=== PATIENT | female | born 1980 | race African-American/Black ===

== ENCOUNTER 2018-01-04 00:32 | Emergency (ER) | payer OTHER ==
[~2018-01-04] VITALS: Ht 154.9 cm; Wt 78.9 kg
[~2018-01-04 00:32] MED LIST: ACETAMINOPHEN325 M1 PO; ASPIRIN325 PO; IBUPROFEN 600600 M1 PO; NOHOMEMEDICATIONS; PRAVACHOL20 MG PO; PROSTATE 2.4 C1 EACH PO; TESSALON PERLE100 MG PO; TOPAMAX 25 MG T25 M1 PO; ZANTAC 150MG T150 MG PO; ZOFRAN ODT4 MG PO; ZOFRAN ODT8 MG PO; ZPAK PO
[2018-01-04 01:01] LABS: URINE BILIRUBIN NEGATIVE (Negative); URINE BLOOD 2+ (Negative); URINE CLARITY CLEAR; URINE COLOR YELLOW; URINE GLUCOSE-RANDOM* NEGATIVE (Negative); URINE KETONES NEGATIVE (Negative); URINE LEUKOCYTES-REFLEX NEGATIVE (Negative); URINE NITRITE-REFLEX NEGATIVE (Negative); URINE PROTEIN (DIPSTICK) TRACE (Negative); URINE SPECIFIC GRAVITY >= 1.030 (1.005-1.035)
[2018-01-04 01:11] LABS: BACTERIA-REFLEX 1-9 Few /HPF (None Seen); CASTS None Seen /LPF (None Seen); CRYSTALS None Seen /LPF (None Seen); MUCUS 4-6 Moderate strn/LPF (None Seen); SQUAMOUS 0-3 Few /LPF (0-3); URINE RBC 3-10 Few /HPF (0-2); URINE WBC-REFLEX 0-5 Rare /HPF (0-5)
[2018-01-04 01:25] LABS: ABSOLUTE NEUTROPHILS 3.5 thou/uL (1.4-8.2); BASOPHILS 0.7 % (0.0-2.0); EOSINOPHILS 1.1 % (0.0-3.0); HEMATOCRIT 38.8 % (37.0-47.0); HEMOGLOBIN 12.8 gm/dL (12.0-15.0); LYMPHOCYTES 35.5 % (24.0-44.0); MCH 27.9 pg (26.0-34.0); MCV 84.5 fL (80.0-100.0); MONOCYTES 9.4 % (1.0-8.0); PLATELET COUNT 257 thou/uL (150-400); POLYS 53.3 % (36.0-66.0); RBC 4.59 mil/uL (4.20-5.00); RDW 13.5 % (10.5-14.5); WBC 6.5 thou/uL (4.0-11.0)
[2018-01-04 01:33] LABS: CALCIUM 8.6 mg/dL (8.5-10.1); CREATININE 0.7 mg/dL (0.6-1.0); POTASSIUM 3.5 mmol/L (3.5-5.1)
[2018-01-04 01:39] LABS: ALBUMIN 3.5 g/dL (3.4-5.0); TOTAL BILIRUBIN 0.3 mg/dL (<0.1-1.0); TOTAL PROTEIN 7.5 g/dL (6.4-8.2)
[2018-01-04] MEDS ORDERED: KEFLEX500 M1 PO (01:49)
== END 2018-01-04 02:15 | disposition home or self-care (01) ==
LOC: ER 00:32
PROVIDERS: Emergency Medicine
DX: N39.0 Urinary tract infection, site not specified (principal); F17.210 Nicotine dependence, cigarettes, uncomplicated; Z95.5 Presence of coronary angioplasty implant and graft; Z86.73 Personal history of transient ischemic attack (TIA), and cerebral infarction without residual deficits

== ENCOUNTER 2020-02-23 03:50 | Inpatient (IN) | payer OTHER ==
[~2020-02-23] VITALS: Ht 160 cm; Wt 64.4 kg
[~2020-02-23 03:50] MED LIST changes: +KEFLEX500 M1 PO
[2020-02-23 03:53] VITALS: BP 142/100
[2020-02-23 05:48] LABS: ABSOLUTE NEUTROPHILS 5.2 thou/uL (1.4-8.2); BASOPHILS 0.5 % (0.0-2.0); EOSINOPHILS 0.9 % (0.0-3.0); HEMATOCRIT 43.9 % (37.0-47.0); HEMOGLOBIN 14.3 gm/dL (12.0-15.0); LYMPHOCYTES 26.8 % (24.0-44.0); MCH 27.7 pg (26.0-34.0); MCHC 32.7 g/dL (28.0-37.0); MCV 84.8 fL (80.0-100.0); MONOCYTES 6.6 % (1.0-8.0); PLATELET COUNT 225 thou/uL (150-400); POLYS 65.2 % (36.0-66.0); RBC 5.17 mil/uL (4.20-5.00); RDW 13.7 % (10.5-14.5)
[2020-02-23 05:52] LABS: D-DIMER 3.18 ug/mLFEU (0.19-0.50)
[2020-02-23 06:19] LABS: ANION GAP 12 mmol/L (7-16); BUN 9 mg/dL (7-18); CHLORIDE 102 mmol/L (98-107); CO2 25 mmol/L (21-32); CREATININE 0.7 mg/dL (0.6-1.0); GLUCOSE 102 mg/dL (74-106); POTASSIUM 3.6 mmol/L (3.5-5.1); SODIUM 139 mmol/L (136-145)
[2020-02-23 06:29] LABS: TROPONIN-I <0.06 ng/mL (<0.06)
[2020-02-23] MEDS ORDERED: ATORVASTATIN CA80 MG PO (08:19)
[2020-02-23 08:20] LABS: PROTIME 9.6 Seconds (9.3-11.4)
--- NOTE | 2020-02-23 09:24 | EKG ---
[facility] [place] [address] ELECTROCARDIOGRAM REPORT Name: ALIN AMAYA Room #: 170- ADM IN M.R.#: [id number] Admission: 02/23/20 Attend Phys: Ingrid Sunshine MD Discharge: Date of : 84 Report #: [id number] THIS REPORT FOR: cc: [facility] - Clinic physician unknown [facility] - Clinic physician unknown Raymond Kaur MD [facility] THIS REPORT FOR: //name// [facility] ED Test Date: 2020-02-23 Test Time: 05:08:31 Pat Name: ALIN AMAYA Department: Room: [facility] Gender: F 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
[2020-02-23 09:40] VITALS: BP 125/74
[2020-02-23 09:45] VITALS: BP 114/84
[2020-02-23 10:00] VITALS: BP 113/79
[2020-02-23 15:48] VITALS: BP 114/79
--- NOTE | 2020-02-23 16:10 | NUR ---
PT ADMITTED RELATED TO PE. CM REVIEWED CHART AND SPOKE WITH CARE TEAM. CM CALLED AND SPOKE WITH PT THIS AFTERNOON. SHE INDICATED THAT SHE RESIDES IN AN APARTMENT WITH HER DTRS. SHE INDICATED THERE ARE 15 STEP TO ENTER AND NO STEPS INSIDE. 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 SHE INDICATED THAT HER DTRS ASSIST HER WITH DRESSING, DOING HER HAIR, AND MEAL PREPERATION. SHE INDICATED THAT SHE HAD DONE OP PT AT [facility] ON [facility] [address] IN THE PAST. PT INDICATED NO OTHER HH OR POST ACUTE CARE STAYS. PHYSICIAN PT MAY BE MEDICALLY STABLE TO DC HOME OVER THE WEEKEND. PT AND OT TO ASSESS. SHOULD PT HAVE ANY THEYRAPY NEEDS PLEASE PROVIDE SCRIPT FOR OP SERVICES. CM TO PUT NUMBER FOR [facility] WAIVER PROGRAM IN HER DC INFO. CM TO FOLLOW INDICATED WITH DC PLANNING.
--- NOTE | 2020-02-23 18:30 | NUR ---
PT RECEIVED FROM THE ER AT 1015 ALERT AND IN SOME C/O BACK PAIN. ASSESSED AND ORIENTED TO THE UNIT. HEPARIN GTT AND BOLUS STARTED IN THE ER. APTT CAME BACK HIGH SO GTT OFF FOR ONE HOUR AND DOSE REDUCED. PAIN UNDER CONTROL W/ MEDS AND ZOFRAN GIVEN W/ RELIEF OF NAUSEA. VSS AND BREATHING OK.
[2020-02-23 22:01] VITALS: BP 128/87
[2020-02-24 02:13] LABS: ABSOLUTE NEUTROPHILS 3.7 thou/uL (1.4-8.2); BASOPHILS 0.4 % (0.0-2.0); EOSINOPHILS 0.6 % (0.0-3.0); HEMATOCRIT 35.8 % (37.0-47.0); LYMPHOCYTES 37.3 % (24.0-44.0); MCH 27.6 pg (26.0-34.0); MCHC 32.7 g/dL (28.0-37.0); MCV 84.4 fL (80.0-100.0); MONOCYTES 8.5 % (1.0-8.0); PLATELET COUNT 207 thou/uL (150-400); POLYS 53.2 % (36.0-66.0); RBC 4.24 mil/uL (4.20-5.00); RDW 13.6 % (10.5-14.5); WBC 6.9 thou/uL (4.0-11.0)
[2020-02-24 02:17] LABS: HEMOGLOBIN 11.7 gm/dL (12.0-15.0)
[2020-02-24 02:25] LABS: CALCIUM 8.3 mg/dL (8.5-10.1); CREATININE 0.6 mg/dL (0.6-1.0); MAGNESIUM 1.8 mg/dL (1.8-2.4); POTASSIUM 3.6 mmol/L (3.5-5.1)
--- NOTE | 2020-02-24 04:31 | NUR ---
PATIENT ALERT AND ORIENTED X4. UP WITH ONE ASSIST TO BATHROOM. STARTED SPOTTING ON HER MENSTRAL CYCLE. DENIES PAIN. HEPARIN DRIP INFUSING AND MONITORED BY THIS NURSE. NO CHANGE FOR LAB DRAWS AT 1930 AND 0130 PER HEPARIN DRIP PROTOCOL. NEXT LAB DRAW SCHEDULED FOR 729. IVF INFUSING PER ORDER W/O COMPLICATION. WILL MONITOR.
[2020-02-24 08:34] VITALS: BP 109/73
[2020-02-24 15:31] VITALS: BP 120/82
--- NOTE | 2020-02-24 17:06 | NUR ---
A/O, calm and pleasant; vss, afebrile; complain of chest pain " a little', Tynol given and worked.
--- NOTE | 2020-02-24 18:47 | NUR ---
Heparin drip is going at 7.9 units/kg/hr, the night nurse is aware.
[2020-02-24 21:57] VITALS: BP 111/80
--- NOTE | 2020-02-25 03:42 | NUR ---
PATIENT ALERT AND ORIENTED X4. UP TO BATHROOM WITH ONE SBA. HEPARIN DRIP MONITORED PER ORDER. IVF INFUSING W/O COMPLICATION. REQUESTED AND GIVEN TYLENOL FOR PAIN. RESTING QUIETLY, HOWEVER, NOT SLEEPING MUCH. WILL MONITOR.
[2020-02-25 10:44] VITALS: BP 121/92
[2020-02-25 15:37] VITALS: BP 123/90
[2020-02-25 19:28] VITALS: BP 131/84
--- NOTE | 2020-02-25 19:43 | NUR ---
ASSUMED CARE OF PT AT SHIFT CHANGE. ASSESSMENT CHARTED. MEDS GIVEN PER SEP. PT A&OX4. NO C/O PAIN OR DISTRESS. HEPARIN DRIP DC'D AND TRANSITIONED TO ORAL ANTICOAG. PLAN TO DC TOMORROW. WILL CONTINUE TO MONITOR AND FOLLOW POC.
--- NOTE | 2020-02-26 02:32 | NUR ---
VSS-AFEBRILE. C/O MINOR CHEST DISCOMFORT THAT WAS WELL RELIEVED WITH PO TYLENOL. CALLS APPROPRIATELY FOR ANY NEEDED ASSISTANCE.
[2020-02-26 08:05] VITALS: BP 123/83
[2020-02-26] MEDS ORDERED: HYDROCODON-ACE1 EAC7 PO (12:16)
[2020-02-26] MEDS ORDERED: ACETAMINOPHEN325 M1 PO (12:16)
[2020-02-26] MEDS ORDERED: ELIQUIS5 MG PO (12:16)
[2020-02-26 13:03] VITALS: BP 123/83
--- NOTE | 2020-02-26 13:47 | NUR ---
CARE TEAM INDICATED THAT PT IS MEDICALLY STABLE TO DC HOME THIS DAY. PT IS TO DC HOME TO SELF CARE. NO NEEDS IDENTIFIED. NO OTHER CM INTERVENTION INDICATED. CASE CLOSED.
--- NOTE | 2020-02-26 20:16 | NUR ---
Received awake on bed. Due medications given as prescribed, able to swallow meds w/o difficulty. On room air. Vital signs stable. A+Ox4; with history of CVA, assisted in ADLs. On telemetry, SR-ST; strips attached to chart; no complaints of chest pain, crushing sensation and heaviness. On heart healthy diet- tolerating well; no nausea, no vomiting and no abdominal pain noted. With SL at R FA- intact and flushing well. Able to sit out on the chair. Falls bundle in place. Up with AO1; continent of bowel and bladder, able to go to the toilet with mimimal to standby assist. Pt seen and examined by Dr Mendez, discharge orders made. Discharge instructions, follow up schedule given and instructed to patient; Discharge forms signed. Paged Dr Mendez re: prescription, physician called back and said they went electronically- pt informed. IV discontinued; telemetry discontinued as well. Pt fetched by her relative; brought pt out of the unit via wheelchair with her personal belongings with her. Pt discharged. Pt called back and said she's currently in the pharmacy and her prescriptions did not went thru, called Dr Mendez- pt's pharmacy's contact number given to physician as per request.
== END 2020-02-26 13:43 | disposition home or self-care (01) | DRG 176 ==
LOC: ER 03:50 → 4W 08:20 → EROBS 08:20 → 4W 10:01
PROVIDERS: Emergency Medicine; Nurse Practitioner; ADMIT Internal Medicine; ATTEND Internal Medicine
DX: I26.99 Other pulmonary embolism without acute cor pulmonale (principal); D68.59 Other primary thrombophilia; I69.354 Hemiplegia and hemiparesis following cerebral infarction affecting left non-dominant side; I25.10 Atherosclerotic heart disease of native coronary artery without angina pectoris; Z95.5 Presence of coronary angioplasty implant and graft; I25.2 Old myocardial infarction; Z91.19 Patient's noncompliance with other medical treatment and regimen; Z79.899 Other long term (current) drug therapy
CPT/HCPCS: 10045

== ENCOUNTER 2020-08-28 20:15 | Emergency (ER) | payer OTHER ==
[~2020-08-28] VITALS: Ht 160 cm; Wt 65.8 kg
[~2020-08-28 20:15] MED LIST changes: +ATORVASTATIN CA80 MG PO; +ELIQUIS5 MG PO; +HYDROCODON-ACE1 EAC7 PO
[2020-08-28 21:19] LABS: ABSOLUTE NEUTROPHILS 2.4 thou/uL (1.4-8.2); BASOPHILS 0.4 % (0.0-2.0); EOSINOPHILS 0.8 % (0.0-3.0); HEMATOCRIT 36.5 % (37.0-47.0); HEMOGLOBIN 11.8 gm/dL (12.0-15.0); LYMPHOCYTES 46.4 % (24.0-44.0); MCH 26.8 pg (26.0-34.0); MCHC 32.4 g/dL (28.0-37.0); MCV 82.8 fL (80.0-100.0); MONOCYTES 5.5 % (1.0-8.0); PLATELET COUNT 270 thou/uL (150-400); POLYS 46.9 % (36.0-66.0); RBC 4.41 mil/uL (4.20-5.00); RDW 13.9 % (10.5-14.5); WBC 5.1 thou/uL (4.0-11.0)
[2020-08-28 21:52] LABS: CREATININE 0.7 mg/dL (0.6-1.0); POTASSIUM 3.6 mmol/L (3.5-5.1)
[2020-08-28 22:05] VITALS: BP 112/75
== END 2020-08-28 22:10 | disposition home or self-care (01) ==
LOC: ER 20:15
PROVIDERS: Nurse Practitioner
DX: R51.9 Headache, unspecified (principal); I25.10 Atherosclerotic heart disease of native coronary artery without angina pectoris; F17.210 Nicotine dependence, cigarettes, uncomplicated; Z79.82 Long term (current) use of aspirin; Z79.899 Other long term (current) drug therapy